=== PATIENT | female | born 1965 ===

== ENCOUNTER 2024-12-02 10:00 | Inpatient (IN) | payer OTHER ==
[~2024-12-02] VITALS: Ht 154.9 cm; Wt 126.6 kg
[2024-12-09] MEDS ORDERED: METFORMIN HCL500 M3 PO (11:14)
[2024-12-09 11:19] VITALS: BP 127/84
[2024-12-09 13:32] LABS: RH POSITIVE
[2025-01-03] MEDS ORDERED: POVIDONE-IODINE 118 ML BOTT TOP ONE (14:30)
[2025-01-03] MEDS ORDERED: CEFAZOLIN SODIUM 1,000 MG VIAL IV ONE (14:30)
[2025-01-03] MEDS ORDERED: MORPHINE SULFATE 4 MG/ML VIAL IV PRN (16:00)
[2025-01-03] MEDS ORDERED: MORPHINE SULFATE 4 MG,MORPHINE SULFATE 2 MG IV PRN (16:00)
[2025-01-03] MEDS ORDERED: INSULIN LISPRO 1,000 UNIT/10 ML UNITS SUBCUTANEO PRN ×2 (16:00→16:45)
[2025-01-03] MEDS ORDERED: DEXTROSE 50 % IN WATER 0.5 G/ML VIAL IV PRN ×2 (16:00→16:45)
[2025-01-03] MEDS ORDERED: RINGERS SOLUTION,LACTATED 1,000 ML IV SCH (16:00)
[2025-01-03] MEDS ORDERED: ONDANSETRON HCL 2 MG/ML VIAL IM PRN (16:00)
[2025-01-03] MEDS ORDERED: SUGAMMADEX SODIUM 200 MG/2 ML VIAL IV ONE (16:15)
[2025-01-03] MEDS ORDERED: CEFAZOLIN SODIUM 1,000 MG VIAL IV SCH (18:00)
[2025-01-03 19:23] VITALS: BP 106/66
[2025-01-03] MEDS ORDERED: MORPHINE SULFATE 4 MG/ML VIAL IV ONE (19:50)
[2025-01-03 21:41] LABS: BASO % 0.1 % (0.1-1.2); EOS # 0.00 (0.04-0.54); EOS % 0.0 % (0.7-7.0); LYMPH # 1.06 (1.18-3.74); LYMPH % 7.7 % (19.3-53.1); MEAN PLATELET VOLUME 10.40 fl (9.4-12.4); MONO # 0.63 (0.24-0.82); MONO % 4.6 % (4.7-12.5); NEUT # 12.06 (1.56-6.13); NEUT % 87.2 % (34.0-71.1); RED CELL DISTRIBUTION WIDTH 12.4 % (11.6-14.4)
[2025-01-04] VITALS: BP 107/67; O2SAT 95
[2025-01-04 08:18] VITALS: BP 125/65
[2025-01-04] MEDS ORDERED: ENOXAPARIN SODIUM 40 MG/0.4 ML SYRINGE SUBCUTANEO SCH (09:00)
[2025-01-04] MEDS ORDERED: GABAPENTIN 300 MG CAPSULE PO PRN (13:00)
[2025-01-04 16:00] VITALS: BP 91/58
[2025-01-05] VITALS: BP 100/64
[2025-01-05] MEDS ORDERED: GABAPENTIN300 MG PO (07:11)
[2025-01-05] MEDS ORDERED: CIPRO500 MG PO (07:15)
[2025-01-05] MEDS ORDERED: IBUPROFEN800 MG PO (07:15)
[2025-01-05 09:32] VITALS: BP 109/74
== END 2025-01-05 09:15 | disposition home or self-care (01) | DRG 743 ==
LOC: SURH 12-13 08:45 → O/R 01-03 10:14 → OB/GYN 01-03 16:28
PROVIDERS: ADMIT Obstetrics & Gynecology Gynecology; ATTEND Obstetrics & Gynecology Gynecology
PROC: 0UT70ZZ Resection of Bilateral Fallopian Tubes, Open Approach (ICD-10-PCS; 2025-01-03)
PROC: 0UT20ZZ Resection of Bilateral Ovaries, Open Approach (ICD-10-PCS; 2025-01-03)
PROC: 0USG0ZZ Reposition Vagina, Open Approach (ICD-10-PCS; 2025-01-03)
PROC: 0UT90ZZ Resection of Uterus, Open Approach (ICD-10-PCS; principal; 2025-01-03 11:45)
DX: N84.0 Polyp of corpus uteri (principal)